=== PATIENT | male | born 1970 | race Caucasian/White ===

== ENCOUNTER 2019-05-16 16:34 | Emergency (ER) | payer OTHER | END 2019-05-16 19:43 | disposition left against medical advice (07) | LOC: JER 16:34 ==

== ENCOUNTER 2022-02-16 11:22 | Emergency (ER) | payer OTHER ==
[2022-02-16 11:28] VITALS: BP 123/81; PULSE 74; TEMP 98.2; BMI 30.4
== END 2022-02-16 12:55 | disposition home or self-care (01) ==
LOC: JERFT 11:22
DX: L73.1 Pseudofolliculitis barbae (principal); L23.7 Allergic contact dermatitis due to plants, except food
CPT/HCPCS: 99281-25